=== PATIENT | male | born 1990 | race Caucasian/White ===

== ENCOUNTER 2018-05-25 16:23 | Emergency (ER) | payer SELFPAY ==
[2018-05-25] MEDS ORDERED: LIDOCAINE 1%/EPINEPHRINE INJ 20 ML VIAL INJ ONE (17:21)
[2018-05-25] MEDS ORDERED: DIPH/PERTUSS(ACELL)/TETANUS VAC/PF 0.5 ML SYR (>=10YO) IM ONE ×2 (17:21→19:44)
--- NOTE | 2018-05-25 17:21 | ER Document Report ---
ED Medical Screen (RME) - General Chief Complaint: Laceration Stated Complaint: RIGHT LEG LACERATION Time Seen by Provider: 05/25/18 17:11 Notes: Patient is a 27-year-old male that presents to the emergency department for chief complaint of laceration to his right leg. Patient reports that he was cutting with a blade on some felt paper, and the knife slipped and cut just above his knee, this occurred about an hour prior to ED arrival. ROS: Other than noted above, the 12 point review of systems was reviewed with the patient and were negative, all pertinent findings are included in the HPI. PHYSICAL EXAMINATION: Vital signs reviewed. GENERAL: Well-appearing, well-nourished and in no acute distress. HEAD: Atraumatic, normocephalic. EYES: Pupils equal round extraocular movements intact, conjunctiva are normal. ENT: Nares patent NECK: Normal range of motion CV: Heart regular rate and rhythm LUNGS: No respiratory distress Musculoskeletal: Normal range of motion, tendon function intact, excellent strength of extension of the knee, wound was inspected, did not appear to penetrate the fascia, wound measures approximately 3-1/2-4 cm in length. NEUROLOGICAL: Normal speech PSYCH: Normal mood, normal affect. MDM: Patient seen and examined for rapid initial assessment. Vital signs reviewed. A comprehensive ED assessment and evaluation of the patient, analysis of test results and completion of the medical decision making process will be conducted by additional ED providers. *Note is created using voice recognition software and may contain spelling, syntax or grammatical errors. - Related Data Allergies/Adverse Reactions: No Known Allergies Allergy (Unverified 05/25/18 16:25) Past Medical History - Social History Frequency of alcohol use: Heavy Drug Abuse: None Renal/ Medical History: Reports: Hx Kidney Stones. Denies: Hx Peritoneal Dial ysis Past Surgical History: Reports: Hx Tonsillectomy Physical Exam - Vital signs Vitals: Temp Pulse Resp BP Pulse Ox 98.6 F 81 16 145/103 H 97 05/25/18 16:28 05/25/18 16:28 05/25/18 16:28 05/25/18 16:28 05/25/18 16:28 Course - Vital Signs Vital signs: Temp Pulse Resp BP Pulse Ox 98.6 F 81 16 145/103 H 97 05/25/18 16:28 05/25/18 16:28 05/25/18 16:28 05/25/18 16:28 05/25/18 16:28
--- NOTE | 2018-05-25 20:08 | ER Document Report ---
HPI - HPI Time Seen by Provider: 05/25/18 17:11 Pain Level: 2 Notes: Patient is a 27-year-old male with no significant past medical history presents emergency department complaining of a laceration to his right distal anterior thigh status post injury prior to arrival. Patient states that he cut himself with a blade that was relatively clean and not rested. Patient states that it was new as of today. Patient states that he has been able to ambulate and put his leg through full range of motion without any difficulties. He has no other concerns or complaints. Denies drug allergies. Unknown last tetanus. Denies any headache, fever, URI, sore throat, chest pain, palpitations, syncope, cough, shortness of breath, wheeze, dyspnea, abdominal pain, nausea/vomiting/diarrhea, urinary retention, dysuria, hematuria, loss of control of bowel or bladder, numbness/tingling, saddle anesthesia, muscle paralysis/weakness, or rash. - ROS Systems Reviewed and Negative: Yes All other systems reviewed and negative - DERM Skin Color: Normal Past Medical History - Social History Smoking Status: Current Every Day Smoker Frequency of alcohol use: Heavy Drug Abuse: None Family History: Reviewed & Not Pertinent Patient has suicidal ideation: No Patient has homicidal ideation: No Renal/ Medical History: Reports: Hx Kidney Stones. Denies: Hx Peritoneal Dialysis Past Surgical History: Reports: Hx Tonsillectomy Vertical Provider Document - CONSTITUTIONAL Agree With Documented VS: Yes Notes: PHYSICAL EXAMINATION: GENERAL: Well-appearing, well-nourished and in no acute distress. LUNGS: Breath sounds clear to auscultation bilaterally and equal. No wheezes rales or rhonchi. HEART: Regular rate and rhythm without murmurs, rubs, gallops. Musculoskeletal: Rt leg: FROM to passive/active. Strength 5+/5. N/V intact distal. + 3cm linear superficial laceration noted. Higher tension area as it is distal anterior thigh. Extremities: No cyanosis, clubbing, or edema b/l. Peripheral pulses 2+. Capillary refill less than 3 seconds. NEUROLOGICAL: Normal speech, normal gait. Normal sensory, motor exams PSYCH: Normal mood, normal affect. SKIN: see above. Course - Re-evaluation Re-evalutation: 05/25/18 20:54 Patient is an afebrile, well-hydrated, 27-year-old male who presents emergency department with a laceration to his right anterior distal thigh. Vitals are acceptable without significant tachycardia, tachypnea, or hypoxia. PE is otherwise unremarkable for any neurovascular, mass, obvious tendon/leg rupture, obvious fracture/dislocation, retained foreign body. Wound was thoroughly irrigated and cleansed. Tetanus was updated today. Wound edges were approximated appropriately utilizing 4 keisha. Patient opted for keisha as he wants to try to work and it is a higher tension area and sutures would most likely tear apart. Wound dressing was placed and wound instructions reviewed. Recheck with PCM in 3-5 days. [place] will need removed in 10-12 days. Return to the ED with any other worsening/concerning symptoms. Patient is in agreement. - Vital Signs Vital signs: Temp Pulse Resp BP Pulse Ox 98.6 F 81 16 145/103 H 97 05/25/18 16:28 05/25/18 16:28 05/25/18 16:28 05/25/18 16:28 05/25/18 16:28 Procedures - Laceration/Wound Repair Right Thigh Time completed: 20:15 Wound length (cm): 3 Wound's Depth, Shape: Superficial, Linear Laceration pre-procedure: Sterile PPE donned, Sterile drapes applied Anesthetic type: 1% Lidocaine w/epi Volume Anesthetic (mLs): 6 Wound explored: Clean, No foreign body removed Irrigated w/ Saline (mLs): 200 Wound Debrided: none Wound Repaired With: [place] Number of Sutures: 4 Layer Closure?: No Post-procedure wound care: Sterile dressing applied Post-procedure NV exam normal: Yes Complications: No Discharge - Discharge Clinical Impression: Laceration of right thigh without complication Qualifiers: Encounter type: initial encounter Qualified Code(s): S71.111A - Laceration without foreign body, right thigh, initial encounter Condition: Stable Disposition: HOME, SELF-CARE Instructions: Laceration Care ([facility]), Soap Cleansing ([facility]), Antibiotic Ointment Protection ([facility]), Tetanus Immunization Given ([facility]) Additional Instructions: Do not shower or bathe for 24 hours. After 24 hours you may shower but no submersion of the wound under water. Keep the original dressing on the wound for 24 hours unless the drainage soaks through. Change the dressing daily thereafter. You may leave the wound open to the air once there is no more discharge. Return to the ED and/or your PCM in 3-5 days for a recheck. Monitor for any signs of worsening pain or redness, purulent drainage, streaks, and/or fever. Return to the ED if noticing any of the above symptoms or as needed. Take medications as directed. Your keisha will need to be removed in 10-12 days. Forms: Elevated Blood Pressure, Smoking Cessation Education Referrals: [facility] [Provider Group] - Follow up as needed
[2018-05-25 21:05] VITALS: BP 137/87
--- NOTE | 2018-05-25 21:58 | ER Document Report ---
Doctor's Note Notes: I personally and independently obtained patient history and examined the patient in conjunction with the APC and agree with the assessment, treatment plan and disposition of the patient as recorded by the APC, and have reviewed the APC's note. HISTORY OF PRESENT ILLNESS: Patient is a 27-year-old male that presents to the emergency department for chief complaint of laceration to his right leg. Patient reports that he was cutting with a blade on some felt paper, and the knife slipped and cut just above his knee, this occurred about an hour prior to ED arrival. ROS: Other than noted above, the 12 point review of systems was reviewed with the patient and were negative, all pertinent findings are included in the HPI. PHYSICAL EXAMINATION: Vital signs reviewed. GENERAL: Well-appearing, well-nourished and in no acute distress. HEAD: Atraumatic, normocephalic. EYES: Pupils equal round extraocular movements intact, conjunctiva are normal. ENT: Nares patent NECK: Normal range of motion CV: Heart regular rate and rhythm LUNGS: No respiratory distress Musculoskeletal: Normal range of motion, tendon function intact, excellent strength of extension of the knee, wound was inspected, did not appear to penetrate the fascia, wound measures approximately 3-1/2-4 cm in length. NEUROLOGICAL: Normal speech PSYCH: Normal mood, normal affect. MEDICAL DECISION MAKING: Patient's wound was repaired, by Jj Mcclure PA-C as noted in his note, patient tolerated well, will follow-up to have his sutures removed as directed. Please review detail APC documentation. *Note is created using voice recognition software and may contain spelling, syntax or grammatical errors.
== END 2018-05-25 21:05 | disposition home or self-care (01) ==
LOC: ER 16:23
PROC: 0HQHXZZ Repair Right Upper Leg Skin, External Approach (ICD-10-PCS; principal; 2018-05-25)
DX: S71.111A Laceration without foreign body, right thigh, initial encounter (principal); W26.0XXA Contact with knife, initial encounter; F17.200 Nicotine dependence, unspecified, uncomplicated
CPT/HCPCS: 99282; 90471; 90715; 12002; J3490